=== PATIENT | male | born 1945 | race Two or more races ===

== ENCOUNTER → 2025-04-16 15:02 | Outpatient (REF) | payer MEDICARE, SELFPAY | LOC: RAD 15:02 | PROVIDERS: ATTENDING PHYSICIAN Family Medicine | DX: M79.604 Pain in right leg (principal); R29.898 Other symptoms and signs involving the musculoskeletal system | CPT/HCPCS: 72110; 73564 ==

== ENCOUNTER 2025-05-07 12:33 | Outpatient (RCR) | payer MEDICARE, SELFPAY | END 2025-05-07 23:59 | disposition home or self-care (01) | LOC: RPT 12:33 | PROVIDERS: ATTENDING PHYSICIAN Family Medicine | DX: M17.11 Unilateral primary osteoarthritis, right knee (principal); M25.561 Pain in right knee; R53.1 Weakness; Z73.6 Limitation of activities due to disability; R26.89 Other abnormalities of gait and mobility | CPT/HCPCS: 97110; 97162 ==

== ENCOUNTER 2025-06-04 13:25 | Outpatient (RCR) | payer MEDICARE, SELFPAY | END 2025-06-04 23:59 | disposition home or self-care (01) | LOC: RPT 13:25 | PROVIDERS: ATTENDING PHYSICIAN Family Medicine | DX: M17.11 Unilateral primary osteoarthritis, right knee (principal); M25.561 Pain in right knee; R53.1 Weakness; Z73.6 Limitation of activities due to disability; R26.89 Other abnormalities of gait and mobility | CPT/HCPCS: 97110; 97530 ==

== ENCOUNTER 2025-06-26 12:52 | Outpatient (RCR) | payer MEDICARE, SELFPAY | END 2025-06-26 23:59 | disposition home or self-care (01) | LOC: RPT 12:52 | PROVIDERS: ATTENDING PHYSICIAN Family Medicine | DX: M17.11 Unilateral primary osteoarthritis, right knee (principal); M25.561 Pain in right knee; R53.1 Weakness; Z73.6 Limitation of activities due to disability; R26.89 Other abnormalities of gait and mobility | CPT/HCPCS: 97110; 97112 ==

== ENCOUNTER 2025-08-03 10:07 | Outpatient (RCR) | payer MEDICARE, SELFPAY | END 2025-08-03 23:59 | disposition home or self-care (01) | LOC: RPT 10:07 | PROVIDERS: ATTENDING PHYSICIAN Family Medicine | DX: M17.11 Unilateral primary osteoarthritis, right knee (principal); M25.561 Pain in right knee; R53.1 Weakness; Z73.6 Limitation of activities due to disability; R26.89 Other abnormalities of gait and mobility | CPT/HCPCS: 97110; 97112 ==

== ENCOUNTER 2025-08-08 12:02 | Outpatient (RCR) | payer MEDICARE, SELFPAY | END 2025-08-08 14:45 | disposition home or self-care (01) | LOC: RPT 12:02 | PROVIDERS: ATTENDING PHYSICIAN Family Medicine | DX: M17.11 Unilateral primary osteoarthritis, right knee (principal); M25.561 Pain in right knee; R53.1 Weakness; Z73.6 Limitation of activities due to disability; R26.89 Other abnormalities of gait and mobility | CPT/HCPCS: 97110 ==

== ENCOUNTER 2025-09-04 08:41 | Outpatient (RCR) | payer MEDICARE, SELFPAY | END 2025-09-04 23:59 | disposition home or self-care (01) | LOC: RPT 08:41 | PROVIDERS: ATTENDING PHYSICIAN Family Medicine | DX: M54.59 Other low back pain (principal); Z73.6 Limitation of activities due to disability; R20.2 Paresthesia of skin; R26.89 Other abnormalities of gait and mobility | CPT/HCPCS: 97110; 97112; 97162 ==

== ENCOUNTER 2025-10-03 07:25 | Outpatient (RCR) | payer MEDICARE, SELFPAY | END 2025-10-05 06:26 | disposition home or self-care (01) | LOC: RPT 07:25 | PROVIDERS: ATTENDING PHYSICIAN Family Medicine | DX: M54.59 Other low back pain (principal); Z73.6 Limitation of activities due to disability; R20.2 Paresthesia of skin; M79.604 Pain in right leg; R26.89 Other abnormalities of gait and mobility | CPT/HCPCS: 97110; 97112 ==